=== PATIENT | male | born 1950 | race Caucasian/White ===

== ENCOUNTER → 2017-04-07 | Outpatient (CLI) | payer MEDICARE, BC ==
[~2017-04-07] MED LIST: ANTIVERT25 MG PO; ATIVAN2 MG PO; BUSPAR15 MG PO; PERCOCET 5/31 TABLET PO; PROZAC20 MG PO; SEROQUEL XR150 MG PO
== END | disposition home or self-care (01) ==
LOC: CDC 09:53
DX: Z01.810 Encounter for preprocedural cardiovascular examination (principal); G90.529 Complex regional pain syndrome I of unspecified lower limb; I44.0 Atrioventricular block, first degree
CPT/HCPCS: 93000

== ENCOUNTER → 2017-09-13 | Outpatient (CLI) | payer MEDICARE, BC | END | disposition home or self-care (01) | LOC: CDC 09:16 | DX: Z01.810 Encounter for preprocedural cardiovascular examination (principal); K40.90 Unilateral inguinal hernia, without obstruction or gangrene, not specified as recurrent; I44.0 Atrioventricular block, first degree | CPT/HCPCS: 93000 ==

== ENCOUNTER 2017-09-25 07:11 | Day surgery (SDC) | payer OTHER, BC ==
[~2017-09-25] VITALS: Ht 193 cm; Wt 95.3 kg
[2017-09-25 07:54] VITALS: BP 108/65
[2017-09-25] MEDS ORDERED: NORCO 5/3251 TABLET PO (10:12)
[2017-09-25 11:20] VITALS: BP 137/75
[2017-09-25 12:24] VITALS: BP 117/64
== END 2017-09-25 12:33 | disposition home or self-care (01) ==
LOC: SDC 07:11
PROC: 0YU50JZ Supplement Right Inguinal Region with Synthetic Substitute, Open Approach (ICD-10-PCS; principal; 2017-09-25)
DX: K40.90 Unilateral inguinal hernia, without obstruction or gangrene, not specified as recurrent (principal); I10 Essential (primary) hypertension; Z82.49 Family history of ischemic heart disease and other diseases of the circulatory system; Z83.3 Family history of diabetes mellitus; Z88.6 Allergy status to analgesic agent
CPT/HCPCS: 87641; C1781; J0131; J0690; J1170; J2250; J3010